=== PATIENT | male | born 1975 | race Caucasian/White ===

== ENCOUNTER 2017-04-11 09:55 | Day surgery (SDC) | payer MEDICARE, MEDICAID ==
[~2017-04-11] VITALS: Ht 180.3 cm; Wt 199.8 kg
[2017-04-11 10:43] VITALS: BP 153/88; PULSE 94; TEMP 98.3
[2017-04-11] MEDS ORDERED: SYNTHROID0.05 MG/TA PO (11:08)
[2017-04-11] MEDS ORDERED: FLONASE NASAL S16 GM NS (11:09)
[2017-04-11 14:45] VITALS: BP 142/74; PULSE 70; TEMP 97.4
[2017-04-11 15:00] VITALS: BP 152/92; PULSE 92
[2017-04-11] MEDS ORDERED: PYRIDIUM 100MG100 MG PO (15:11)
[2017-04-11] MEDS ORDERED: NORCO 325 MG-51 TAB PO (15:11)
[2017-04-11 15:15] VITALS: BP 149/89; PULSE 64
[2017-04-11 15:30] VITALS: BP 152/93; PULSE 66
== END 2017-04-11 16:30 | disposition home or self-care (01) ==
LOC: SDCO 09:55
DX: N20.0 Calculus of kidney (principal); E66.01 Morbid (severe) obesity due to excess calories; I10 Essential (primary) hypertension; E03.9 Hypothyroidism, unspecified; G47.30 Sleep apnea, unspecified; Z79.899 Other long term (current) drug therapy
CPT/HCPCS: C1769; C1894; C2617; J0690; J1100; J1885; J2250; J2405; J2704; J3010; J7120; Q9967

== ENCOUNTER 2017-05-09 12:09 | Observation (INO) | payer MEDICARE, MEDICAID ==
[~2017-05-09] VITALS: Ht 180.3 cm; Wt 188.5 kg
[~2017-05-09 12:09] MED LIST: FLONASE NASAL S16 GM NS; NORCO 325 MG-51 TAB PO; PYRIDIUM 100MG100 MG PO; SYNTHROID0.05 MG/TA PO
[2017-05-09 14:18] VITALS: BP 173/111; PULSE 87; TEMP 98.1
[2017-05-09 19:15] VITALS: BP 173/60; PULSE 102; TEMP 98.1
[2017-05-09 20:30] VITALS: BP 111/57; PULSE 75
[2017-05-09 21:00] VITALS: BP 131/55; PULSE 89
[2017-05-09 22:00] VITALS: BP 158/90; PULSE 105
[2017-05-09 23:00] VITALS: BP 163/78; PULSE 96
[2017-05-10 01:58] VITALS: BP 149/76; PULSE 90; TEMP 97.8
[2017-05-10 06:11] VITALS: BP 125/62; PULSE 82; TEMP 97.4
== END 2017-05-10 08:51 | disposition home or self-care (01) ==
LOC: SDCO 12:09 → SURG 21:38 → SDCO 21:38 → SURG 05-10 08:51 → SDCO 05-10 08:51 → SURG 05-10 08:51
DX: N20.0 Calculus of kidney (principal); I10 Essential (primary) hypertension; E03.9 Hypothyroidism, unspecified; G47.30 Sleep apnea, unspecified; I89.0 Lymphedema, not elsewhere classified; Z80.1 Family history of malignant neoplasm of trachea, bronchus and lung
CPT/HCPCS: OP; C1769; C1894; C2617; G0378; J0690; J1100; J2405; J2704; J2765; J3010; J7120

== ENCOUNTER 2017-05-23 13:34 | Day surgery (SDC) | payer MEDICARE, MEDICAID ==
[~2017-05-23] VITALS: Ht 180.3 cm; Wt 196.1 kg
[2017-05-23] VITALS (7 sets, daily range): BP systolic 149–161; BP diastolic 77–101; PULSE 71–94; TEMP 97.6–98.6
[2017-05-23] MEDS ORDERED: TIROSINT25 MC1 PO (15:33)
[2017-05-23] MEDS ORDERED: FLONASEALLERGY NS (15:34)
== END 2017-05-23 21:00 | disposition home or self-care (01) ==
LOC: SDCO 13:34 → SURG 19:12 → SDCO 21:00
DX: N20.0 Calculus of kidney (principal); I10 Essential (primary) hypertension; E03.9 Hypothyroidism, unspecified; G47.33 Obstructive sleep apnea (adult) (pediatric); E66.01 Morbid (severe) obesity due to excess calories; I89.0 Lymphedema, not elsewhere classified; Z82.49 Family history of ischemic heart disease and other diseases of the circulatory system
CPT/HCPCS: OP; C1769; C1894; C2617; J0690; J1100; J2405; J2704; J2765; J3010; J7030; Q9967